=== PATIENT | female | born 1960 | race Caucasian/White ===

== ENCOUNTER 2024-08-31 14:31 | Inpatient (IN) ==
[2024-08-31] MEDS ORDERED: IOPAMIDOL 100 ML BOTTLE IV ONE (14:32)
[2024-08-31] MEDS: KETOROLAC 15 MG/ML VIAL IV ONE (15:24)
[2024-08-31] MEDS: KETOROLAC 30 MG/ML VIAL IM ONE (15:28)
[2024-08-31 15:53] LABS: Basophils # (Auto) 0.03 K/mcL (0.00-0.30); Basophils % (Auto) 0.3 % (0.0-2.0); Eosinophils % (Auto) 0.9 % (0.0-7.0); Hematocrit 37.3 % (34.1-44.9); Hemoglobin 11.6 g/dL (11.2-15.7); Lymphocytes # (Auto) 1.03 K/mcL (1.50-4.80); Lymphocytes % (Auto) 8.9 % (15.5-49.0); Mean Cell Volume 113.7 fL (80.0-100.0); Mean Corpuscular HGB Conc 31.1 g/dL (31.0-36.0); Mean Platelet Volume 9.5 fL (8.8-12.5); Monocytes # (Auto) 0.74 K/mcL (0.10-0.90); Monocytes % (Auto) 6.4 % (1.0-12.0); Neutrophils % (Auto) 83.3 % (38.0-78.0); Platelet Count 390 K/mcL (140-440); RBC 3.28 M/mcL (3.59-5.38); Red Cell Distribution Width 19.6 % (11.5-14.5); WBC 11.6 K/mcL (4.5-11.0)
[2024-08-31 16:17] LABS: ALT/SGPT < 5 U/L (<40); AST/SGOT 19 U/L (<32); Albumin/Globulin Ratio 0.9 (1.0-2.3); Alkaline Phosphatase 157 U/L (39-117); Bilirubin,Total 0.4 mg/dL (0.1-1.0); Blood Urea Nitrogen 12 mg/dL (8-23); Calcium 9.3 mg/dL (8.6-10.4); Carbon Dioxide 24 mmol/L (22-30); Chloride 105 mmol/L (96-108); Globulin 3.4 gm/dL (2.2-3.7); Glomerular Filtration Rate 96; Glucose 115 mg/dL (70-105); Potassium 4.2 mmol/L (3.3-5.1); Sodium 140 mmol/L (133-145)
[2024-08-31 17:51] LABS: Appearance,Urine Clear (Clear); Bilirubin,Urine Negative (Negative); Color,Urine Yellow; Glucose,Urine (UA) Negative (Negative); Ketones,Urine Negative (Negative); Leukocyte Esterase,Urine Negative /uL (Negative); Nitrate,Urine Negative (Negative); PH,Urine 5.5 (5.0-9.0); Protein,Urine Negative (Negative); Specific Gravity,Urine 1.025 (1.000-1.035); Urine Blood Negative ery/mcL (Negative); Urobilinogen,Urine Normal
[2024-08-31] MEDS: MAGNESIUM OXIDE 400 MG TABLET PO ONE (18:20)
[2024-08-31] MEDS: AZITHROMYCIN 250 MG TABLET PO ONE (18:20)
[2024-08-31] MEDS: MAGNESIUM SULFATE 8.12 MEQ/2 ML VIAL IV ONE (19:08)
[2024-08-31] MEDS: cefTRIAXone 2 GM in DEXTROSE 5% IN WATER 50 ML IV ONE (19:08)
[2024-08-31] MEDS: HYDROcodone/APAP 5/325MG TABLET PO ONE (19:36)
[2024-08-31] MEDS: MAGNESIUM SULFATE 2 GM/50 ML BAG IV ONE (19:38)
[2024-08-31] MEDS ORDERED: IPRATROPIUM/ALBUTEROL 3 ML AMPUL.NEB NEB PRN (20:56)
[2024-08-31] MEDS ORDERED: guaiFENesin/DEXTROMETHORPHAN 5ML UD CUP PO PRN (20:56)
[2024-08-31] MEDS: cefTRIAXone 2 GM in DEXTROSE 5% IN WATER 50 ML IV SCH (21:04)
[2024-08-31] MEDS: 0.9 % SODIUM CHLORIDE 10 ML SYRINGE IV SCH (21:05)
[2024-08-31] MEDS ORDERED: tiZANidine 4 MG TABLET PO PRN (21:23)
[2024-08-31] MEDS ORDERED: NYSTATIN 500,000 UNITS/5 ML ORAL.SUSP SSW PRN (21:30)
[2024-08-31] MEDS: DOCUSATE SODIUM 100 MG CAPSULE PO SCH (21:34)
[2024-08-31] MEDS: SENNOSIDES 1 TABLET PO SCH (21:34)
[2024-08-31] MEDS: traZODone HCL 50 MG TABLET PO PRN (22:27)
[2024-08-31] MEDS: NICOTINE 21 MG PATCH TOPICAL SCH (22:27)
[2024-08-31] MEDS: morphine 4 MG/ML VIAL IV PRN (22:33)
[2024-09-01 07:17] LABS: Basophils # (Auto) 0.05 K/mcL (0.00-0.30); Basophils % (Auto) 0.6 % (0.0-2.0); Eosinophils % (Auto) 2.5 % (0.0-7.0); Hemoglobin 11.3 g/dL (11.2-15.7); Lymphocytes # (Auto) 1.52 K/mcL (1.50-4.80); Lymphocytes % (Auto) 18.8 % (15.5-49.0); Mean Cell Volume 112.5 fL (80.0-100.0); Mean Corpuscular HGB Conc 31.4 g/dL (31.0-36.0); Mean Platelet Volume 9.7 fL (8.8-12.5); Monocytes # (Auto) 0.56 K/mcL (0.10-0.90); Monocytes % (Auto) 6.9 % (1.0-12.0); Neutrophils % (Auto) 71.1 % (38.0-78.0); Platelet Count 432 K/mcL (140-440); Red Cell Distribution Width 19.1 % (11.5-14.5); WBC 8.1 K/mcL (4.5-11.0)
[2024-09-01] MEDS ORDERED: valACYclovir 500 MG TABLET PO PRN (07:39)
[2024-09-01 07:56] LABS: ALT/SGPT < 5 U/L (<40); AST/SGOT 16 U/L (<32); Albumin 3.1 gm/dL (3.2-5.2); Albumin/Globulin Ratio 0.9 (1.0-2.3); Alkaline Phosphatase 149 U/L (39-117); Bilirubin,Total 0.2 mg/dL (0.1-1.0); Blood Urea Nitrogen 14 mg/dL (8-23); Calcium 9.4 mg/dL (8.6-10.4); Carbon Dioxide 25 mmol/L (22-30); Chloride 102 mmol/L (96-108); Globulin 3.4 gm/dL (2.2-3.7); Glomerular Filtration Rate 91; Glucose 121 mg/dL (70-105); Potassium 4.2 mmol/L (3.3-5.1); Sodium 139 mmol/L (133-145)
[2024-09-01] MEDS: ESCITALOPRAM 20 MG TABLET PO SCH (09:10)
[2024-09-01] MEDS: POTASSIUM CHLORIDE 20 MEQ TABLET PO SCH (09:11)
[2024-09-01] MEDS: MAGNESIUM OXIDE 400 MG TABLET PO SCH (09:12)
[2024-09-01] MEDS: TORSEMIDE 10 MG TABLET PO SCH (09:12)
[2024-09-01] MEDS: ENOXAPARIN 40 MG/0.4 ML SYRINGE SQ SCH (09:13)
[2024-09-01] MEDS: NIFEdipine 10 MG CAPSULE PO SCH (09:14)
[2024-09-01] MEDS: cefTRIAXone 2 GM in DEXTROSE 5% IN WATER 50 ML IV SCH (09:14)
[2024-09-01] MEDS: buPROPion 75 MG TABLET PO SCH (09:14)
[2024-09-01] MEDS: IPRATROPIUM/ALBUTEROL 3 ML AMPUL.NEB NEB PRN (10:35)
[2024-09-01] MEDS: AZITHROMYCIN 500 MG in 0.9 % SODIUM CHLORIDE 250 ML IV SCH (10:46)
[2024-09-01] MEDS: HYDROcodone/APAP 10/325MG TABLET PO PRN (15:42)
[2024-09-01] MEDS: ONDANSETRON 4 MG/2 ML VIAL IV PRN (19:14)
[2024-09-01] MEDS: PANTOPRAZOLE 40 MG TABLET PO PRN (23:32)
[2024-09-01] MEDS: tiZANidine 4 MG TABLET PO PRN (23:33)
[2024-09-02 06:49] LABS: Basophils # (Auto) 0.03 K/mcL (0.00-0.30); Basophils % (Auto) 0.4 % (0.0-2.0); Eosinophils # (Auto) 0.21 K/mcL (0.00-0.70); Eosinophils % (Auto) 2.5 % (0.0-7.0); Hematocrit 35.5 % (34.1-44.9); Hemoglobin 10.7 g/dL (11.2-15.7); Lymphocytes # (Auto) 1.09 K/mcL (1.50-4.80); Mean Cell Volume 117.2 fL (80.0-100.0); Mean Corpuscular HGB Conc 30.1 g/dL (31.0-36.0); Mean Platelet Volume 9.3 fL (8.8-12.5); Monocytes # (Auto) 0.58 K/mcL (0.10-0.90); Monocytes % (Auto) 6.9 % (1.0-12.0); Neutrophils % (Auto) 77.1 % (38.0-78.0); Platelet Count 370 K/mcL (140-440); RBC 3.03 M/mcL (3.59-5.38); Red Cell Distribution Width 19.2 % (11.5-14.5); WBC 8.4 K/mcL (4.5-11.0)
[2024-09-02 07:44] LABS: ALT/SGPT < 5 U/L (<40); AST/SGOT 15 U/L (<32); Albumin 2.8 gm/dL (3.2-5.2); Albumin/Globulin Ratio 0.9 (1.0-2.3); Alkaline Phosphatase 124 U/L (39-117); Bilirubin,Total < 0.2 mg/dL (0.1-1.0); Blood Urea Nitrogen 14 mg/dL (8-23); Calcium 8.9 mg/dL (8.6-10.4); Carbon Dioxide 26 mmol/L (22-30); Chloride 103 mmol/L (96-108); Glomerular Filtration Rate 91; Glucose 76 mg/dL (70-105); Potassium 5.2 mmol/L (3.3-5.1); Sodium 140 mmol/L (133-145)
[2024-09-02] MEDS: ESCITALOPRAM 20 MG TABLET PO SCH (09:58)
[2024-09-02] MEDS ORDERED: OMEPRAZOLE 20 MG CAPSULE PO PRN (11:00)
[2024-09-02] MEDS: ONDANSETRON 4 MG ODT TABLET SL PRN (13:34)
[2024-09-02] MEDS: HYDROcodone/APAP 10/325MG TABLET PO PRN (13:34)
[2024-09-03 06:48] LABS: Basophils # (Auto) 0.06 K/mcL (0.00-0.30); Basophils % (Auto) 0.6 % (0.0-2.0); Eosinophils # (Auto) 0.22 K/mcL (0.00-0.70); Eosinophils % (Auto) 2.1 % (0.0-7.0); Hematocrit 32.5 % (34.1-44.9); Lymphocytes # (Auto) 1.03 K/mcL (1.50-4.80); Lymphocytes % (Auto) 9.9 % (15.5-49.0); Mean Corpuscular HGB Conc 30.8 g/dL (31.0-36.0); Mean Platelet Volume 10.2 fL (8.8-12.5); Monocytes # (Auto) 0.81 K/mcL (0.10-0.90); Monocytes % (Auto) 7.8 % (1.0-12.0); Neutrophils % (Auto) 79.5 % (38.0-78.0); Platelet Count 400 K/mcL (140-440); RBC 2.85 M/mcL (3.59-5.38); Red Cell Distribution Width 18.6 % (11.5-14.5); WBC 10.4 K/mcL (4.5-11.0)
[2024-09-03 06:49] LABS: ALT/SGPT < 5 U/L (<40); AST/SGOT 14 U/L (<32); Albumin 2.8 gm/dL (3.2-5.2); Albumin/Globulin Ratio 0.9 (1.0-2.3); Alkaline Phosphatase 115 U/L (39-117); Bilirubin,Total < 0.2 mg/dL (0.1-1.0); Blood Urea Nitrogen 18 mg/dL (8-23); Carbon Dioxide 29 mmol/L (22-30); Chloride 103 mmol/L (96-108); Glomerular Filtration Rate 78; Glucose 100 mg/dL (70-105); Potassium 5.2 mmol/L (3.3-5.1); Sodium 140 mmol/L (133-145)
[2024-09-03] MEDS ORDERED: valACYclovir 500 MG TABLET PO SCH (09:00)
[2024-09-03] MEDS: POTASSIUM CHLORIDE 20 MEQ/15 ML ML PO SCH (09:47)
[2024-09-03] MEDS: valACYclovir 500 MG TABLET PO SCH (10:04)
[2024-09-03] MEDS: PANTOPRAZOLE 40 MG TABLET PO PRN (11:53)
[2024-09-03] MEDS: MAGNESIUM SULFATE 2 GM/50 ML BAG IV ONE (12:57)
[2024-09-03] MEDS: METOCLOPRAMIDE 10 MG/2 ML VIAL IV PRN (15:37)
[2024-09-03] MEDS: NITROGLYCERIN 0.4 MG TAB.SUBL SL PRN (15:46)
[2024-09-04 06:51] LABS: Basophils # (Auto) 0.08 K/mcL (0.00-0.30); Basophils % (Auto) 0.7 % (0.0-2.0); Eosinophils # (Auto) 0.17 K/mcL (0.00-0.70); Eosinophils % (Auto) 1.5 % (0.0-7.0); Hematocrit 35.7 % (34.1-44.9); Hemoglobin 10.6 g/dL (11.2-15.7); Lymphocytes # (Auto) 1.14 K/mcL (1.50-4.80); Lymphocytes % (Auto) 10.3 % (15.5-49.0); Mean Cell Volume 119.4 fL (80.0-100.0); Mean Corpuscular HGB Conc 29.7 g/dL (31.0-36.0); Mean Platelet Volume 9.7 fL (8.8-12.5); Monocytes # (Auto) 0.72 K/mcL (0.10-0.90); Monocytes % (Auto) 6.5 % (1.0-12.0); Neutrophils % (Auto) 80.8 % (38.0-78.0); Platelet Count 410 K/mcL (140-440); RBC 2.99 M/mcL (3.59-5.38); Red Cell Distribution Width 18.5 % (11.5-14.5); WBC 11.1 K/mcL (4.5-11.0)
[2024-09-04 06:59] LABS: ALT/SGPT < 5 U/L (<40); AST/SGOT 17 U/L (<32); Albumin/Globulin Ratio 0.9 (1.0-2.3); Alkaline Phosphatase 131 U/L (39-117); Bilirubin,Total < 0.2 mg/dL (0.1-1.0); Blood Urea Nitrogen 17 mg/dL (8-23); Calcium 9.1 mg/dL (8.6-10.4); Carbon Dioxide 28 mmol/L (22-30); Chloride 101 mmol/L (96-108); Globulin 3.3 gm/dL (2.2-3.7); Glomerular Filtration Rate 78; Glucose 85 mg/dL (70-105); Potassium 4.7 mmol/L (3.3-5.1); Sodium 140 mmol/L (133-145)
[2024-09-04 09:59] LABS: ABG Methemoglobin 0.2 % (0.4-1.5); Total Hemoglobin 12.1 gm/Dl (12.0-15.0); VBG Base Excess 4 (-2-3); VBG HCO3 31.5 mmol/L (24.0-28.0); VBG Oxygen Saturation 61.1 % (40.0-70.0); VBG PCO2 62.1 mmHg (41.0-51.0); VBG PH 7.32 U (7.32-7.42); VBG PO2 35.6 mmHg (25.0-40.0); VBG Total CO2 33.4 mmol/L (25.0-29.0)
[2024-09-04] MEDS: LACTOBACILLUS 1 CAPSULE PO SCH (10:18)
[2024-09-04] MEDS: ACETAMINOPHEN 325 MG TABLET PO PRN (22:22)
[2024-09-05] MEDS: IBUPROFEN 200 MG TABLET PO PRN (04:58)
[2024-09-05 06:38] LABS: Basophils # (Auto) 0.05 K/mcL (0.00-0.30); Basophils % (Auto) 0.3 % (0.0-2.0); Eosinophils # (Auto) 0.13 K/mcL (0.00-0.70); Eosinophils % (Auto) 0.8 % (0.0-7.0); Hematocrit 33.1 % (34.1-44.9); Hemoglobin 10.5 g/dL (11.2-15.7); Lymphocytes # (Auto) 0.74 K/mcL (1.50-4.80); Lymphocytes % (Auto) 4.3 % (15.5-49.0); Mean Cell Volume 111.8 fL (80.0-100.0); Mean Corpuscular HGB Conc 31.7 g/dL (31.0-36.0); Mean Platelet Volume 10.2 fL (8.8-12.5); Monocytes # (Auto) 1.27 K/mcL (0.10-0.90); Monocytes % (Auto) 7.5 % (1.0-12.0); Neutrophils % (Auto) 86.7 % (38.0-78.0); Platelet Count 373 K/mcL (140-440); RBC 2.96 M/mcL (3.59-5.38)
[2024-09-05 06:44] LABS: ALT/SGPT < 5 U/L (<40); AST/SGOT 15 U/L (<32); Albumin/Globulin Ratio 0.9 (1.0-2.3); Alkaline Phosphatase 132 U/L (39-117); Bilirubin,Total 0.3 mg/dL (0.1-1.0); Blood Urea Nitrogen 17 mg/dL (8-23); Calcium 9.2 mg/dL (8.6-10.4); Carbon Dioxide 31 mmol/L (22-30); Chloride 98 mmol/L (96-108); Globulin 3.4 gm/dL (2.2-3.7); Glomerular Filtration Rate 91; Glucose 101 mg/dL (70-105); Potassium 4.3 mmol/L (3.3-5.1); Sodium 139 mmol/L (133-145)
[2024-09-05] MEDS: HYDROcodone/APAP 10/325MG TABLET PO PRN (09:10)
[2024-09-05 13:26] VITALS: TEMP 97.9; O2SAT 92
== END 2024-09-05 13:09 | DRG 871 ==
LOC: ED 14:31 → MEDSUR 20:41
PROVIDERS: ADMIT Internal Medicine; ATTEND Internal Medicine